=== PATIENT | female | born 1990 | race Caucasian/White ===

== ENCOUNTER 2019-10-17 05:55 | Inpatient (IN) | payer OTHER, MEDICAID, SELFPAY ==
[2019-10-17] VITALS (65 sets, daily range): BP systolic 0–169; BP diastolic 0–88; PULSE 52–92; RESP 16–18; TEMP 36.6–37.2; O2SAT 90–99; BMI 34.2
[2019-10-17 06:57] LABS: Basophils % 0.4 %; Eosinophils # 0.1 10^3/uL (0.0-0.8); Eosinophils % 2.1 %; Hematocrit 32.2 % (37.0-47.0); Hemoglobin 10.4 g/dL (11.5-15.3); Lymphocytes # 1.7 10^3/uL (0.8-4.8); Lymphocytes % 35.4 %; Mean Corpuscular HGB Conc 32.3 g/dL (30.0-36.0); Mean Corpuscular Hemoglobin 26.9 pg (28.0-34.0); Mean Corpuscular Volume 83.2 fL (81-99); Mean Platelet Volume 11.7 fL (7.4-10.4); Monocytes # 0.4 10^3/uL (0.2-0.9); Monocytes % 9.3 %; Neutrophils # 2.5 10^3/uL (1.8-7.7); Neutrophils % 52.6 %; Nucleated Red Blood Cells % 0 %; Platelet Count 191 10^3/cmm (130-400); Red Blood Count 3.87 10^6/uL (4.1-5.3); Red Cell Distribution Width 14.3 % (12.1-15.1); White Blood Count 4.8 10^3/uL (4.0-10.0)
[2019-10-17] MEDS: miSOPROStol 100 mcg tablet 25 MCG VAGINAL (07:06)
[2019-10-17] MEDS: lactated ringers 1,000 ML 999 ML IV ×2 (10:53→12:00)
--- NOTE | 2019-10-17 10:55 | PC.NURSE ---
LR BOLUS FOR EPIDURAL STARTED
[2019-10-17] MEDS: ondansetron 2 mg/ML SDV 2 mL 4 MG IVP (11:23)
--- NOTE | 2019-10-17 11:37 | ANES.PREANE2 ---
Pre-Anesthetic Assessment Pre-Anesthetic Assessment: Height/Weight: Height 1.75 m Weight 105.011 kg Temp Pulse Resp BP 97.9 F 81 17 151/79 10/17/19 07:00 10/17/19 11:26 10/17/19 07:00 10/17/19 11:26 Preop Diagnosis: labor Proposed Procedure: epi Was Beta Michael taken within 24 hours: N/A Last Intake: 09:00 Social: Social History: No alcohol and No tobacco Exam: Pre-Anes Outpt Exam: alert, oriented x 3, clear to auscultation bilaterally and regular rate & rhythm Airway: Submandibular: WNL Cervical ROM: WNL MP: 2 Pulmonary: Pulmonary: None reported CV/HEM: CV/HEM: None reported : : None reported Hepatic: Hepatic: None reported GI: GI: GERD Comments: with Metabolic: Metabolic: None reported Musc/skel: Musc/skel: None reported Neuropsych: Neuropsych: Anxiety and Depression Anesthetic Plan: ASA status: 2 Anesthesia: Anesthesia Evaluation and Regional (specify below) (epi) Risk of > 500 ml blood loss (7ml/kg in children): No Meds/Allergies Current Medications: Current Medications Generic Name Dose Route Start Last Admin Trade Name Freq PRN Reason Stop Dose Admin Ondansetron HCl 4 mg 10/17/19 06:31 10/17/19 11:23 Zofran IVP 4 mg Q4H PRN Administration NAUSEA AND VOMITI NG PFSH Anesthesia Female Reproductive History: : 4 Data Anesthesia CBC & Chem 7: 10/17/19 06:26 Other Labs: Laboratory Results - last 48 hr 10/17/19 06:26 WBC 4.8 RBC 3.87 L Hgb 10.4 L Hct 32.2 L MCV 83.2 MCH 26.9 L MCHC 32.3 RDW 14.3 Plt Count 191 MPV 11.7 H Neut % (Auto) 52.6 Lymph % (Auto) 35.4 [place] % (Auto) 9.3 Eos % (Auto) 2.1 Baso % (Auto) 0.4 Neut # (Auto) 2.5 Lymph # (Auto) 1.7 [place] # (Auto) 0.4 Eos # (Auto) 0.1 Baso # (Auto) 0.0 Nucleated RBC % (auto) 0 Nucleated RBCs # 0.0 Cardiac Studies: No Data to Display
--- NOTE | 2019-10-17 12:07 | P.ANES_ITS ---
Anesthesia Procedures Procedure/Date: 10/17/19 Epidural: Time Out Performed: Yes Consents Signed: Procedure Consent Consent: requested by attending/covering physician and from patient Lumbar Level: L3-L4 Epidural position: sitting Epidural procedure: sterile prep of area (betadine), 1% lidocaine to numb the area (3ml), 18 g needle, neg for pa resthesia, test dose given, 1.5% xylocaine 1:200k epi (5ml), 0.2% Ropivacaine bolus ml (5ml), placed PCEA, no systemic response, sterile dressing applied, L.U.D. no apparent complications and 0.2% Ropiavacaine @ mls/hr (13ml/hr)
[2019-10-17] MEDS: oxytocin 30 UNIT/500 ML BAG 600 UNIT IV (13:34)
--- NOTE | 2019-10-17 13:43 | PM.DELIVERY ---
 Delivery Note: Date of delivery: October 17, 2019 this 28-year-old 4 now para 4 female was admitted for term induction at 39 weeks gestation for increasing discomfort and need to be off for school. After explanation of benefits and risks was discussed in the office the day prior to admission she was admitted the morning of delivery for misoprostol cervical ripening. She received 1 dose of misoprostol 25 mcg and began tay some. She did receive a second dose of misoprostol and contractions became stronger. She received epidural anesthesia and shortly after she was comfortable she was found to be 8 to 9 cm dilated with a bulging bag of water. This physician arrived approximately 20 to 30 minutes later and performed artificial rupture membranes with clear fluid. At that time she was completely dilated. She pushed for just a few contractions and was able to deliver by spontaneous vaginal delivery a healthy, viable male weighing 8 pounds 14 ounces at approximately 1326. There was no episiotomy and no laceration. There was no nuchal cord and the cord did have 3 blood vessels. Upon delivery of the right shoulder anteriorly in the left shoulder posteriorly the was delivered completely and suctioned immediately after . The infant was then laid on mother's abdomen and after approximately 1 minute the cord was clamped and cut by the infant's father. The placenta delivered spontaneously at 1330. There were no complications, presently mother and infant are doing well. EBL approximately 131 mL. Pre-Delivery Course: This patient was followed through her course by this physician without significant problems or concerns. Maternal blood type was A+ with antibody screen negative. Hepatitis B, hepatitis C, RPR and HIV were negative. Group B strep was negative. She did discuss with this physician and Dr. Merino her desire for tubal ligation and that will be accomplished. The day prior to admission the patient was seen in the office and due to problems with scheduling at school and influenza going around and the fact that she was 39 weeks gestation and uncomfortable decision was made to proceed with misoprostol cervical ripening. Delivery: Spontaneous vaginal delivery. Post-Delivery Status: Patient is doing well and will be seen for tubal ligation by Dr. Merino. Otherwise routine orders. A&P Assessment and plan (1) Spontaneous vaginal delivery: Patient appears to be doing well postdelivery. Routine care with tubal ligation per Dr. Merino. Status: Acute Code(s): O80 - Encounter for full-term uncomplicated delivery Coding Level of Care Code Acute Vice President Investor Relations for Chg Fwd Diagnoses Spontaneous vaginal delivery O80
--- NOTE | 2019-10-17 16:26 | PC.NURSE ---
pt up to bathroom without difficulty. void 800ml. anne care performed. pad and underwear changed, gown changed.
--- NOTE | 2019-10-17 16:27 | PC.NURSE ---
pt ambulated to room 206. oriented to room/call light. proud parent pack discussed. instructed to call nurse for one more trip to bathroom then she may be up ad katina. plan of care discussed. pt denies needs or questions
[2019-10-17] MEDS: docusate sodium 100 mg Capsule PO (18:33)
[2019-10-18] VITALS (11 sets, daily range): BP systolic 97–152; BP diastolic 61–88; PULSE 60–114; RESP 16–18; TEMP 36.5–37.4; O2SAT 94–99
[2019-10-18 01:47] LABS: Hematocrit 30.6 % (37.0-47.0); Hemoglobin 9.8 g/dL (11.5-15.3); Mean Corpuscular Hemoglobin 27.1 pg (28.0-34.0); Mean Corpuscular Volume 84.8 fL (81-99); Mean Platelet Volume 11.5 fL (7.4-10.4); Platelet Count 168 10^3/cmm (130-400); Red Blood Count 3.61 10^6/uL (4.1-5.3); White Blood Count 7.5 10^3/uL (4.0-10.0)
--- NOTE | 2019-10-18 08:34 | PM.PN ---
Subjective Subjective: Interval history: Patient is doing well with no problems or concerns. She has mild lochia with no significant clots or cramping. She is ambulating well and tolerating a regular diet. Vitals/I&O/Wt Last Vital Signs Temp 97.7 F 10/18/19 03:30 Pulse 75 10/18/19 03:30 Resp 16 10/18/19 03:30 BP 123/86 10/18/19 03:30 Pulse Ox 92 10/17/19 12:27 10/17/19 10/18/19 10/18/19 21:59 06:59 14:59 Intake Total Output Total Balance Weight last 48 hrs Weight 105.011 kg Physical Exam Const: COMMON NORMALS: no apparent distress and oriented x3 GENERAL APPEARANCE: cooperative and comfortable ORIENTATION/CONSCIOUSNESS: Yes awake Neck/C-Spine: COMMON NORMALS: no JVD Resp: COMMON NORMALS: normal respiratory effort, no retractions, no use of accessory muscles and clear to auscultation bilaterally AUSCULTATION: clear to auscultation bilaterally Cardio: COMMON NORMALS: no JVD, regular rate, regular rhythm and no murmurs RATE: regular rate RHYTHM: regular rhythm GI: COMMON NORMALS: normal to inspection, nondistended, normoactive bowel sounds and soft to palpation (Fundus is firm.) PALPATION: Yes soft (Fundus is firm.) : UTERUS PALPATION: No uterus tender Extremity: GENERAL: Yes normal exam except as noted Neuro: COMMON NORMALS: oriented x3 Psych: COMMON NORMALS: mental status grossly normal, thought process normal, cooperative and affect normal THOUGHT PROCESS: normal thought process Urinary Catheter Management^: Fletcher: Cath Placed During This Visit: yes, but has since been removed by the nurse Reason for Continuing Indwelling Catheter: Decision to DC Catheter Urinary Catheter Date of Insertion: 10/17/19 Urinary Catheter Time of Insertion: 13:00 Date Urinary Catheter Removed: 10/17/19 Time Urinary Catheter Discontinued: 13:20 Data : 10/18/19 01:44 A&P Assessment and plan (1) Spontaneous vaginal delivery: Status: Acute Code(s): O80 - Encounter for full-term uncomplicated delivery (2) tubal ligation planned: tubal ligation planned this afternoon. Probable discharge this evening after that is accomplished. Status: Acute Attestations Medical Necessity Statement*: Patient delivered by vaginal delivery yesterday. She has tubal ligation scheduled this afternoon and will quite possibly be able to be discharged home this evening after that is accomplished. Coding Level of Care Code Acute Cancer Genetics Assistant for Moses Fwsergey Diagnoses Spontaneous vaginal delivery O80 tubal ligation planned
[2019-10-18] MEDS: sodium chloride 0.9% 1,000 ML 30 ML IV (15:22)
--- NOTE | 2019-10-18 15:49 | ANES.PREANE2 ---
Pre-Anesthetic Assessment Pre-Anesthetic Assessment: Height/Weight: Height 1.75 m Weight 105.011 kg Temp Pulse Resp BP Pulse Ox 98 F 70 16 126/76 96 10/18/19 15:16 10/18/19 15:16 10/18/19 15:16 10/18/19 15:16 10/18/19 15:16 Preop Diagnosis: undesired fertility Proposed Procedure: Operation Date: 10/18/19 16:20 Proposed Procedures p Bilateral Tubal Ligation(Not Applicable) - Naga Merino MD Familial anesthetic complications: No trouble Was Beta Michael taken within 24 hours: N/A Last intake: Breakfast at 0745 AM Social: Social History: No alcohol and No tobacco Exam: Pre-Anes Outpt Exam: alert, oriented x 3, clear to auscultation bilaterally and regular rate & rhythm Airway: Cervical ROM: WNL Dentition: Full Pulmonary: Pulmonary: None reported CV/HEM: CV/HEM: None reported : : None reported Hepatic: Hepatic: None reported GI: GI: GERD Comments: during Metabolic: Metabolic: None reported Musc/skel: Musc/skel: None reported Neuropsych: Neuropsych: None reported Anesthetic Plan: ASA status: 2 Anesthesia: General Risk of > 500 ml blood loss (7ml/kg in children): No Meds/Allergies Current Medications: Current Medications Generic Name Dose Route Start Last Admin Trade Name Freq PRN Reason Stop Dose Admin Docusate Sodium 100 mg 10/17/19 18:00 10/18/19 13:45 Colace PO Not Given BID MUSTAPHA Sodium Chloride 1,000 mls @ 30 ml s/hr 10/18/19 15:45 10/18/19 15:22 Sodium Chloride 0.9% IV 10/19/19 15:44 30 mls/hr .Q24H MUSTAPHA Administration Ibuprofen 800 mg 10/17/19 15:00 10/18/19 13:46 Motrin PO Not Given TID MUSTAPHA PFSH Anesthesia Female Reproductive History: : 4 Data Anesthesia CBC & Chem 7: 10/18/19 01:44 Other Labs: Laboratory Results - last 48 hr 10/17/19 10/18/19 06:26 01:44 WBC 4.8 7.5 RBC 3.87 L 3.61 L Hgb 10.4 L 9.8 L Hct 32.2 L 30.6 L MCV 83.2 84.8 MCH 26.9 L 27.1 L MCHC 32.3 32.0 RDW 14.3 14.0 Plt Count 191 168 MPV 11.7 H 11.5 H Neut % (Auto) 52.6 Lymph % (Auto) 35.4 [place] % (Auto) 9.3 Eos % (Auto) 2.1 Baso % (Auto) 0.4 Neut # (Auto) 2.5 Lymph # (Auto) 1.7 [place] # (Auto) 0.4 Eos # (Auto) 0.1 Baso # (Auto) 0.0 Nucleated RBC % (auto) 0 Nucleated RBCs # 0.0 Cardiac Studies: No Data to Display
--- NOTE | 2019-10-18 15:55 | ANE.PACU2 ---
 Inpatient post-anesthesia follow up: Airway intact: Yes Vital signs: Temperature 98 F Pulse Rate 70 Respiratory Rate 16 Blood Pressure 126/76 Pulse Oximetry 96 Oxygen Delivery Me thod Room Air Oxygen Flow Rate Fraction of Inspir ed Oxygen Hydration adequate: Yes Nausea and vomiting: No Mental status: Baseline Additional Comments: No signs of infection at epidural site, no tenderness to palpation, mild soreness at area. Up and walking since epidural removed, urinating since shah removed, and no complaints of headache
--- NOTE | 2019-10-18 15:55 | PM.HP ---
Providers/Chief Complaint Admitting Physician: Abdon Acosta MD Chief Complaint: IUP History of Present Illness Alexa Prieto is a 29 year old 4 para 3-0-0-3 39-week female who presented to the hospital in active labor. Her labor was augmented, she progressed to complete and had an unremarkable delivery. Earlier in her I consulted with her regarding a tubal ligation. At that time we discussed the risks of bleeding, infection, and damage to intra-abdominal organs. We also discussed a 1 and 200 chance of becoming despite a successful tubal ligation. We also discussed other alternatives including IUD and Nexplanon. She made it clear that she would like to have a tubal ligation performed. Review of Systems General: Reports: 10 or more systems reviewed and unremarkable except in HPI and below Const: Denies: fever Card: Denies: chest pain or irregular heart rhythm Resp: Denies: shortness of breath Alejandro/Lymph: Reports: other (Typical bleeding) Medications/Allergies Home Medications Medication Instructions Recorded Confirmed Last Taken Type PNV,calcium 81-mdyl-sbvtn acid tab 10/17/19 10/16/19 20:30 History [ Vitamin Plus Low Iron] ranitidine HCl 10/17/19 10/16/19 20:30 History sertraline mg 10/17/19 10/16/19 20:30 History Allergies Allergy/AdvReac Type Severity Reaction Status Date / Time No Known Allergies Allergy Verified 10/17/19 07:10 PFS Acute Female Reproductive History: : 4 Vitals/I&O/Wt Last Vital Signs Temp 98 F 10/18/19 15:16 Pulse 70 10/18/19 15:16 Resp 16 10/18/19 15:16 BP 126/76 10/18/19 15:16 Pulse Ox 96 10/18/19 15:16 Weight last 48 hrs Weight 231 lb 8.154 oz Physical Exam Const: COMMON NORMALS: no apparent distress and oriented x3 GENERAL APPEARANCE: cooperative, comfortable and well developed HENMT: COMMON NORMALS: normocephalic and moist oral mucous membranes HEAD & SCALP: normocephalic Chest: COMMONS NORMALS: inspection of chest normal Resp: COMMON NORMALS: normal respiratory effort and clear to auscultation bilaterally AUSCULTATION: clear to auscultation bilaterally Cardio: COMMON NORMALS: regular rate, regular rhythm, no gallops, no murmurs and no rub RATE: regular rate RHYTHM: regular rhythm : BLADDER/KIDNEY EXAM: Yes other (The fundus is below the umbilicus.) Extremity: COMMON NORMALS: normal to inspection Neuro: COMMON NORMALS: oriented x3 and no focal motor deficits Skin: COMMON NORMALS: no rashes or lesions noted GENERAL SKIN EXAM: no rashes or lesions noted Urinary Catheter Management^: Fletcher: Cath Placed During This Visit: yes, but has since been removed by the nurse Reason for Continuing Indwelling Catheter: Decision to DC Catheter Urinary Catheter Date of Insertion: 10/17/19 Urinary Catheter Time of Insertion: 13:00 Date Urinary Catheter Removed: 10/17/19 Time Urinary Catheter Discontinued: :20 Data : 10/18/19 01:44 A&P Assessment and plan (1) tubal ligation planned: We will proceed with a bilateral tubal ligation. We once again discussed the risks with the patient. She has no further concerns. Status: Acute (2) Spontaneous vaginal delivery: Status: Acute Code(s): O80 - Encounter for full-term uncomplicated delivery Attestations Medical Necessity Statement*: Routine post tubal ligation care. She will likely be discharged later today or tomorrow morning. Coding Level of Care Code Acute Corporate Associate Attorney for Chg Fwd Diagnoses tubal ligation planned Spontaneous vaginal delivery O80
--- NOTE | 2019-10-18 16:46 | P.OP_ITS ---
Operative Report Date of procedure: October 18, 2019 Pre-op Diagnosis: undesired fertility Post-op diagnosis: same Procedure Done: minilaparotomy bilateral tubal ligation using a modified Beronica technique Specimens removed/disposition: Bilateral fallopian tube segments with the right segment being tagged Surgeon: Naga Merino Estimated blood loss (mL): 5 Complications: None Condition: stable Procedure: The patient was brought back to the operating room where anesthesia was found to be adequate. 10 mL of 0.5% bupivacaine was then used to pre- anesthetize the area just inferior to the umbilicus. A #15 blade was then used to make a 3 cm transverse incision just inferior to the umbilicus. I then dissected down to the underlying subcutaneous tissue until arriving at the fascia. The fascia was then nicked with the scalpel. The fascial incision was extended manually. I identified the fundus of the uterus and followed it to the left fallopian tube. The fallopian tube was then followed to the fimbria. The tube was then ligated, cut, and cauterized in a modified Beronica fashion using 0 chromic. The right fallopian tube was then identified and followed through to the fimbria. It was ligated, cut, and cauterized in similar fashion. The right fallopian tube was tagged. Both fallopian tubes had excellent hemostasis. The fascia was reapproximated using 0 Vicryl in running stitch. The subcut aneous tissue was carefully examined and no further bleeding was noted. The skin was then reapproximated using 4-0 Vicryl in a running subcuticular stitch. A sterile dressing was placed. All counts were correct x2. The patient was moved to the recovery room in stable condition.
--- NOTE | 2019-10-18 17:22 | P.DS_ITS ---
Discharge Providers RURAL ELECTRIFICATION ENGINEER Date of Admission: 10/17/19 05:55 Date of Discharge: 10/18/19 Attending Provider at Admission: Abdon Acosta MD Attending Provider at Discharge: Abdon Acosta MD Consults: Naga Merino Diagnoses at Discharge Discharge Diagnosis (1) tubal ligation planned: Status: Acute (2) Spontaneous vaginal delivery: Status: Acute Reason for Visit Reason for Visit: Reason For Visit: IUP Hospital Course Hospital Course: The patient presented to the hospital due to having contractions that are painful. Her labor was augmented. She had an unremarkable vaginal delivery. Her course was also unremarkable. She had routine bleeding. She was pumping breastmilk. A tubal ligation was performed on the subsequent day. It was also unremarkable. She was discharged several hours after her tubal ligation. Information Peripartum Data: Infant Delivery Method: Vaginal Physical Exam Narrative: EXAM NARRATIVE: The patient is alert. She appears comfortable. Her heart has a regular rate and rhythm with no murmurs appreciated. Lungs are clear to auscultation bilaterally. Her fundus is firm and below the umbilicus prior to the tubal ligation. Urinary Catheter Management^: Fletcher: Cath Placed During This Visit: yes, but has since been removed by the nurse Reason for Continuing Indwelling Catheter: Decision to DC Catheter Urinary Catheter Date of Insertion: 10/17/19 Urinary Catheter Time of Insertion: 13:00 Date Urinary Catheter Removed: 10/17/19 Time Urinary Catheter Discontinued: 13:20 Discharge Data Data Completed and Pending: Pending at discharge Category Date Time Status Pathology: Surgic al [PTH] Routine Pth 10/18/19 16:42 Ordered Labs from last 24 hours 10/18/19 01:44 WBC 7.5 RBC 3.61 L Hgb 9.8 L Hct 30.6 L MCV 84.8 MCH 27.1 L MCHC 32.0 RDW 14.0 Plt Count 168 MPV 11.5 H Vitals: Last Vital Signs Temp 98.8 F 10/18/19 17:10 Pulse 74 10/18/19 17:10 Resp 18 10/18/19 17:10 BP 143/83 10/18/19 17:10 Pulse Ox 95 10/18/19 17:10 Discharge Plan Discharge Patient Disposition: Home, Self-Care Condition: Stable Prescriptions: New ibuprofen 800 mg Tablet 800 mg PO TID Qty: 45 RF: 0 hydrocodone-acetaminophen 5-325 mg Tablet 1 tab PO Q6H PRN (Reason: Moderate To Severe Pain) Qty: 20 RF: 0 Continued sertraline 50 mg tablet RF: 0 ranitidine HCl 150 mg tablet RF: 0 Vitamin Plus Low Iron 27 mg iron- 1 mg tablet RF: 0 Discharge Orders: Discharge Order (Routine); Ordered 10/18/19 Ordered By: Naga Merino Referrals: Abdon Acosta MD [Family Provider] - 6 Weeks Naga Merino MD [Physician] - 7-10 days Discharge Diet: Usual diet Discharge Activity: Limit activity as instructed Discharge Attestations RURAL ELECTRIFICATION ENGINEER Time Spent in Discharge Care*: less than 30 min Coding Level of Care Code Acute Rural Electrification Engineer for Chg Fwd Diagnoses tubal ligation planned Spontaneous vaginal delivery O80
[2019-10-18] MEDS: HYDROcodone-acetaminophen 5-325 mg Tablet PO (17:37)
[2019-10-18] MEDS: measles,mumps,rubella pf Vial (w/diluent) 0.5 ML SUBCUT (20:26)
== END 2019-10-18 20:50 | disposition home or self-care (01) | DRG 798 ==
PROVIDERS: Family Medicine; Admitting Provider Family Medicine; Family Provider Family Medicine; Visit Provider Family Medicine
PROC: 0UL74ZZ Occlusion of Bilateral Fallopian Tubes, Percutaneous Endoscopic Approach (ICD-10-PCS; CPT 58605; principal; 2019-10-18 16:00)
DX: O80 Encounter for full-term uncomplicated delivery (principal); Z37.0 Single live birth; Z3A.39 39 weeks gestation of pregnancy; Z30.2 Encounter for sterilization
CPT/HCPCS: 12345; 36415; 51702; 59025; 59409; 85025; 85027; 88302; 90707; 96372; 96375; J0330; J1885; J2001; J2405; J2704; J2795; J3010; J3490; J7030

== ENCOUNTER → 2023-04-30 15:54 | Outpatient (BNVA) | payer OTHER, SELFPAY | PROVIDERS: Family Provider Family Medicine; PCP Family Medicine; Visit Provider Family Medicine | DX: N92.1 Excessive and frequent menstruation with irregular cycle (principal); D64.9 Anemia, unspecified | CPT/HCPCS: 82670; 82728; 83001; 83002; 84439; 84443; 84481; 85025 ==

== ENCOUNTER 2023-05-08 06:44 | Outpatient (CLI) | payer OTHER, SELFPAY ==
--- NOTE | 2023-05-08 07:15 | US_ITS ---
WS: [id number] US pelv w/transvag [id number] HISTORY: menometrorrhagia COMPARISON: 11/19/2012 Uterus: 9.3 cm x 6.7 cm x 6.0 cm. Mildly enlarged retroverted uterus. At least one fibroid is identified along the anterior lower endoc ervical segment measuring 1.0 x 0.8 x 1.2 cm. Endometrium: 1.0 cm. Normal. There is a tiny amount of fluid along the endometrial canal. Right ovary: 5.0 cm x 2.4 cm x 3.6 cm. Mildly enlarged ovary. There are numerous follicles of similar size throughout the ovary. These are often seen in polycystic ovarian syndrome. There is a small misa unt of fluid adjacent to the ovary. There is a more focal thick-walled complex cyst within the ovary measuring 2.1 x 1.7 x 2.0 cm. This is probably a collapsing corpus luteum. Left ovary: 3.9 cm x 2.3 cm x 2.2 cm. Normal size ovary. This ovary is not as well visualized due to its deep position. No mass identified. No free fluid in the cul-de-sac. IMPRESSION: 1. Retroverted uterus containing a single fibroid with a maximum diameter of 1.2 cm. 2. Multiple small follicles throughout the RIGHT ovary. This is often seen with polycystic ovarian sy ndrome. 3. no ovarian mass.
== END 2023-05-08 06:45 | disposition home or self-care (01) ==
PROVIDERS: PCP Family Medicine; Visit Provider Family Medicine
DX: N92.1 Excessive and frequent menstruation with irregular cycle (principal); N85.4 Malposition of uterus; D25.9 Leiomyoma of uterus, unspecified
CPT/HCPCS: 76830; 76856

== ENCOUNTER → 2023-09-10 16:03 | Outpatient (BNVA) | payer OTHER, SELFPAY | PROVIDERS: PCP Family Medicine; Visit Provider Obstetrics & Gynecology | DX: Z01.419 Encounter for gynecological examination (general) (routine) without abnormal findings (principal) | CPT/HCPCS: 87624 ==

== ENCOUNTER 2023-10-03 08:28 | Day surgery (SDC) | payer OTHER, SELFPAY ==
[2023-10-03] VITALS (9 sets, daily range): BP systolic 127–139; BP diastolic 77–100; PULSE 66–100; RESP 12–18; TEMP 36.5–36.9; O2SAT 96–100; BMI 35.4
--- NOTE | 2023-10-03 01:29 | W.PM.OPSFHP ---
Same Day Surgery H&P Indication for Procedure/HPI DATE OF PROCEDURE: October 03, 2023 CHIEF COMPLAINT/INDICATIONFOR SURGICAL PROCEDURE: abnormal uterine bleeding, heavy menstrual bleeding PREOP DIAGNOSIS: abnormal uterine bleeding PLANNED PROCEDURE: Operation Date: 10/03/23 10:05 Proposed Procedures p Hysteroscopy, endometrial sampling, possible endometrial polypectomy 40082, Endometrial ablatitiom 88594 with Novasure 07946,N92.1(Not Applicable) - Damon Ahn MD s possible endometrial polypectomy(Not Applicable) - Damon Ahn MD s Endometrial ablation with Novasure(Not Applicable) - Damon Ahn MD 32 y.o. h/o BTL 3 years ago following BTL, periods have been very heavy and painful, lasting 5-7 days, with large clots now with spotting between periods and 2 periods / month now scheduled for hysteroscopy; endometrial sampling; possible endometrial polypectomy; endometrial ablation Medications/Allergies* Home Medications Medication Instructions Recorded Confirmed Type metformin 500 mg tablet 500 mg PO BID 10/02/23 10/02/23 History sertraline 25 mg tablet 25 mg PO DAILY 10/02/23 10/02/23 History Allergies/Adverse Reactions Allergy/AdvReac Type Severity Reaction Status Date / Time No Known Allergies Allergy Verified 10/02/23 14:27 Pertinent History/Comorbid Conditions* Medical History (Updated 09/11/23 @ 07:37 by Jannet Tsai MD) Obesity Anxiety Depression Surgical History (Updated 04/30/23 @ 15:10 by Jannet Tsai MD) History of bilateral tubal ligation Family History (Updated 05/28/23 @ 13:14 by Colleen Aguila RN) Colon cancer Grandfather Diabetes Grandmother Grandfather Psychiatric illness Father Denies family history of Ovarian cancer Heart disease Hyperlipidemia Breast cancer Hypertension Uterine cancer Thyroid disease Social History Smoking and tobacco/nicotine status: never used tobacco/nicotine Alcohol intake: never Substance/Drug Use: never Household members: spouse and children Marital status: Number of children: 4 Current occupational status: employed 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
[2023-10-03 08:51] LABS: OR HCG Qualitative Urine Negative (Negative)
[2023-10-03] MEDS: scopolamine 1.5 Patch 1 PATCH TRANSDERMA (09:05)
[2023-10-03] MEDS: sodium chloride 0.9% 1,000 ML 30 ML IV (09:15)
--- NOTE | 2023-10-03 09:33 | W.PM.OPSUD ---
Surgery/Procedure H&P Update DATE OF PROCEDURE: October 03, 2023 DATE H&P PERFORMED: 10/03/23 H&P UPDATE INFORMATION: I have reviewed H&P completed within last 30 days, I have examined patient prior to procedure and No changes to prior documentation PREOP DIAGNOSIS: abnormal uterine bleeding PLANNED PROCEDURE: Operation Date: 10/03/23 10:05 Proposed Procedures p Hysteroscopy, endometrial sampling, possible endometrial polypectomy 02353, Endometrial ablatitiom 13195 with Novasure 14343,N92.1(Not Applicable) - Damon Ahn MD s possible endometrial polypectomy(Not Applicable) - Damon Ahn MD s Endometrial ablation with Novasure(Not Applicable) - Damon Ahn MD
--- NOTE | 2023-10-03 09:57 | P.ANESASSM_ITS ---
Pre-Anesthetic Assessment Height/Weight: Height 1.75 m Weight 108.862 kg Temp Pulse Resp BP Pulse Ox O2 Del Method 98.1 F 80 18 134/100 97 Room Air 10/03/23 08:55 10/03/23 08:55 10/03/23 08:55 10/03/23 08:55 10/03/23 08:55 10/03/23 08:55 Preop Diagnosis: abnormal uterine bleeding Operation Date: 10/03/23 10:05 Proposed Procedures p Hysteroscopy, endometrial sampling, possible endometrial polypectomy 71533, Endometrial ablatitiom 21829 with Novasure 94879,N92.1(Not Applicable) - Damon Ahn MD s possible endometrial polypectomy(Not Applicable) - Damon Ahn MD s Endometrial ablation with Novasure(Not Applicable) - Damon Ahn MD Familial anesthetic complications: None Was Beta Michael taken within 24 hours: N/A Was Clonidine taken within 24 hours: N/A Last intake: Intake Last Liquid Date 10/02/23 Last Liquid Time 21:00 Last Solid Date 10/02/23 Last Solid Time 19:00 Social No alcohol and No tobacco Exam alert, oriented x 3 and regular rate & rhythm Airway Submandibular: within normal limits Mallampati: Class III Dentition: full History/ROS No significant history except as noted Pulmonary None reported CV/HEM None reported None reported Hepatic None reported GI None reported Metabolic None reported Musc/skel None reported Neuropsych Anxiety and Depression Anesthetic Plan ASA status: 2 Anesthesia: Anesthesia Evaluation and General Risk of > 500 ml blood loss (7ml/kg in children): No Medications/Allergies Home Medications Medication Instructions Recorded Confirmed Last Taken Type metformin 500 mg tablet 500 mg PO BID 10/02/23 10/02/23 10/01/23 History sertraline 25 mg tablet 25 mg PO DAILY 10/02/23 10/02/23 10/01/23 History Allergies Allergy/AdvReac Type Severity Reaction Status Date / Time No Known Allergies Allergy Verified 10/02/23 14:27 Current Medications Generic Name Dose Route Start Last Admin Trade Name Freq PRN Reason Stop Dose Admin Sodium Chloride 1,000 mls @ 30 mls/hr 10/03/23 08:45 10/03/23 09:15 Sodium Chloride 0.9% IV 10/04/23 08:44 30 mls/hr .Q24H MUSTAPHA Administration PFSH Anesthesia Medical History (Updated 09/11/23 @ 07:37 by Jannet Tsai MD) Obesity Anxiety Depression Surgical History History of bilateral tubal ligation Family History (Updated 05/28/23 @ 13:16 by Colleen Aguila, RN) Father Psychiatric illness Grandmother Diabetes Grandfather Diabetes Colon cancer Denies family history of Ovarian cancer Heart disease Hyperlipidemia Breast cancer Hypertension Uterine cancer Thyroid disease Social History Smoking and tobacco/nicotine status: never used tobacco/nicotine Alcohol intake: never Substance/Drug Use: never Household members: spouse and children Marital status: Number of children: 4 Current occupational status: employed 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
--- NOTE | 2023-10-03 12:05 | PM.OP ---
Operative Report Date of procedure: October 03, 2023 Pre-op diagnosis: abnormal uterine bleeding, heavy menstrual bleeding Post-op diagnosis: same Procedure done: hysteroscopy curettage of uterus endometrial ablation with Novasure device Implants: none Specimens removed/disposition: endometrial curettings Pap smear Surgeon: Damon Ahn MD Anesthesia: MAC Estimated blood loss (mL): 10 Complications: none Condition: stable Disposition: PACU Brief History: 32 y.o. with h/o heavy menstrual bleeding Procedure: Informed consent was obtained. The patient was taken to the OR and placed on the table. General endotracheal anesthesia was induced. The patient was then placed in dorsolithotomy position. Pap smear was done. The perineum were then prepped and draped in the usual fashion. A speculum was placed in the vagina. The anterior lip of the cervix was grasped with a sharp-toothed tenaculum. The uterus was sounded to 9 cm. The cervix was serially dilated with Hegar dilators. . A hysteroscope was placed into the endometrial cavity. The endometrial cavity was seen to be normal. There were no polyps or fibroids. There was minimal endometrial tissue. The hysteroscope was then removed. Endometrial curettage was done with a sharp curette. Endometrial tissue was sent to pathology. The Novasure device was then primed and inserted into the endometrial cavity. The cervical occlusion sleeve was advanced. Cavity integrity test was done. The device was activated for 110 seconds. The Novasure device was then removed. Repeat hysteroscopy showed an intact endometrial cavity with adequate global endometrial ablation. All instruments were then removed. The sharp-toothed tenaculum was removed. There was a 2 cm laceration of the cervix at 10 o?oclock from the sharp-toothed tenaculum. A stitch of 2-O chromic was placed. No further bleeding was seen. The patient was then placed supine and awakened and taken to the PACU. Postop condition: stable EBL: 10 cc Sponge, needle and instruments counts were normal x 2 Complications: none
--- NOTE | 2023-10-03 12:15 | ANE.PACU2 ---
Inpatient post-anesthesia follow up: Airway intact: Yes Vital signs: Temperature 98 F Pulse Rate 68 Respiratory Rate 17 Blood Pressure 132/80 Pulse Oximetry 97 Oxygen Delivery Me thod Room Air Oxygen Flow Rate 4 Fraction of Inspir ed Oxygen Hydration adequate: Yes Nausea and vomiting: No Pain level: 1 Mental status: Baseline
[2023-10-08 14:04] LABS: Prev. BX: NONE GIVEN; Previous Pap NONE GIVEN
== END 2023-10-03 12:17 | disposition home or self-care (01) ==
PROVIDERS: Anesthesiology; PCP Family Medicine; Visit Provider Obstetrics & Gynecology
PROC: 0UJD8ZZ Inspection of Uterus and Cervix, Via Natural or Artificial Opening Endoscopic (ICD-10-PCS; CPT 58555; principal; 2023-10-03 09:55)
PROC: (CPT 58999; 2023-10-03 09:55)
DX: N93.9 Abnormal uterine and vaginal bleeding, unspecified (principal); Z90.79 Acquired absence of other genital organ(s); E66.9 Obesity, unspecified; Z68.35 Body mass index [BMI] 35.0-35.9, adult
CPT/HCPCS: 58563; 81025; 84703; 88175; 88305; J1100; J1200; J1885; J2250; J2405; J2704; J3010; J7030

== ENCOUNTER → 2024-01-28 13:23 | Outpatient (BNVA) | payer OTHER, SELFPAY | PROVIDERS: PCP Family Medicine; Visit Provider Family Medicine | DX: F41.9 Anxiety disorder, unspecified (principal) | CPT/HCPCS: 80053; 84443; 85025 ==

== ENCOUNTER 2024-02-20 09:33 | Observation (INO) | payer OTHER, SELFPAY ==
[2024-02-20] VITALS (18 sets, daily range): BP systolic 118–162; BP diastolic 65–89; PULSE 72–102; RESP 14–19; TEMP 36.4–37.6; O2SAT 94–99; BMI 36.9
--- NOTE | 2024-02-20 04:38 | W.PM.OPSFHP ---
Same Day Surgery H&P Indication for Procedure/HPI DATE OF PROCEDURE: February 20, 2024 CHIEF COMPLAINT/INDICATIONFOR SURGICAL PROCEDURE: menometrorrhagia PREOP DIAGNOSIS: menometrorrhagia PLANNED PROCEDURE: Operation Date: 02/20/24 07:00 Proposed Procedures p Laparoscopic Assist Vaginal Hysterectomy 64462, N93.9(Not Applicable) - Damon Ahn MD 33 y.o. h/o BTL 3 years ago h/o hysteroscopy, endometrial sampling, endometrial ablation with Novasure October 03, 2023 Findings: Normal endometrial cavity No endometrial polyps or fibroids Minimal endometrial tissue Pap NILM, negative HPV Pathology benign secretory endometrium Has continued to have bleeding, occasionally heavy and painful Patient now scheduled for hysterectomy Medications/Allergies* Allergies/Adverse Reactions Allergy/AdvReac Type Severity Reaction Status Date / Time topiramate [From Topamax] Allergy anxiety Verified 02/19/24 15:21 Pertinent History/Comorbid Conditions* Medical History (Updated 09/11/23 @ 07:37 by Jannet Tsai MD) Obesity Anxiety Depression Surgical History (Updated 04/30/23 @ 15:10 by Jannet Tsai MD) History of bilateral tubal ligation Family History (Updated 05/28/23 @ 13:14 by Colleen Aguila RN) Colon cancer Grandfather Diabetes Grandmother Grandfather Psychiatric illness Father Denies family history of Ovarian cancer Heart disease Hyperlipidemia Breast cancer Hypertension Uterine cancer Thyroid disease Social History Smoking and tobacco/nicotine status: never used tobacco/nicotine Alcohol intake: never Substance/Drug Use: never Household members: spouse and children Marital status: Number of children: 4 Current occupational status: employed 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
--- NOTE | 2024-02-20 06:37 | W.PM.OPSUD ---
Surgery/Procedure H&P Update DATE OF PROCEDURE: February 20, 2024 DATE H&P PERFORMED: 02/20/24 H&P UPDATE INFORMATION: I have reviewed H&P completed within last 30 days, I have examined patient prior to procedure and No changes to prior documentation PREOP DIAGNOSIS: menometrorrhagia PLANNED PROCEDURE: Operation Date: 02/20/24 07:00 Proposed Procedures p Laparoscopic Assist Vaginal Hysterectomy 06764, N93.9(Not Applicable) - Damon Ahn MD
--- NOTE | 2024-02-20 06:47 | P.ANESASSM_ITS ---
Pre-Anesthetic Assessment Height/Weight: Height 1.75 m Weight 113.398 kg Temp Pulse Resp BP Pulse Ox O2 Del Method 97.6 F 78 18 139/80 96 Room Air 02/20/24 06:09 02/20/24 06:09 02/20/24 06:09 02/20/24 06:09 02/20/24 06:09 02/20/24 06:09 Preop Diagnosis: menometrorrhagia Operation Date: 02/20/24 07:00 Proposed Procedures p Laparoscopic Assist Vaginal Hysterectomy 11655, N93.9(Not Applicable) - Damon Ahn MD Last intake: Intake Last Liquid Date 02/19/24 Last Liquid Time 22:00 Last Solid Date 02/19/24 Last Solid Time 20:30 Social No tobacco Exam alert, oriented x 3, clear to auscultation bilaterally and regular rate & rhythm Airway Submandibular: within normal limits Cervical ROM: within normal limits Mallampati: Class I Pulmonary None reported CV/HEM None reported None reported Hepatic None reported Metabolic None reported Anesthetic Plan ASA status: 2 Anesthesia: General Risk of > 500 ml blood loss (7ml/kg in children): Yes, adequate IV access and fluids planned Medications/Allergies Home Medications Medication Instructions Recorded Confirmed Last Taken Type amitriptyline 10 mg tablet 10 mg PO .qhs #30 tabs 01/28/24 02/19/24 Unknown Rx sertraline 50 mg tablet 50 mg PO DAILY #30 tabs 01/28/24 02/19/24 02/18/24 Rx Allergies Allergy/AdvReac Type Severity Reaction Status Date / Time topiramate [From Topamax] Allergy anxiety Verified 02/19/24 15:21 [facility] Anesthesia Medical History Obesity Anxiety Depression Surgical History History of bilateral tubal ligation Family History Father Psychiatric illness Grandmother Diabetes Grandfather Diabetes Colon cancer Denies family history of Ovarian cancer Heart disease Hyperlipidemia Breast cancer Hypertension Uterine cancer Thyroid disease Social History Smoking and tobacco/nicotine status: never used tobacco/nicotine Alcohol intake: never Substance/Drug Use: never Household members: spouse and children Marital status: Number of children: 4 Current occupational status: employed 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
[2024-02-20 07:10] LABS: OR HCG Qualitative Urine Negative (Negative)
[2024-02-20] MEDS: ceFAZolin 2,000 mg SDV 2000 MG IVP (07:10)
[2024-02-20] MEDS: sodium chloride 0.9% 1,000 ML 30 ML IV (07:15)
[2024-02-20] MEDS: lidocaine-epi 1% PF 1:200,000 30 mL SDV INJECTION (07:51)
--- NOTE | 2024-02-20 09:39 | P.OP_ITS ---
Operative Report Date of procedure: February 20, 2024 Pre-op diagnosis: menometrorrhagia Post-op diagnosis: same Post-op findings: Normal-sized uterus Normal ovaries Fallopian tubes remnants from previous bilateral salpingectomy Procedure done: Laparoscopic assisted vaginal hysterectomy Implants: none Specimens removed/disposition: uterus bilateral fallopian tube remnants Surgeon: Jose Armando Carreon MD [employer]: Damon Ahn MD Anesthesia: General Estimated blood loss (mL): 300 Complications: none Findings: Normal-sized uterus Normal ovaries Fallopian tubes remnants from previous bilateral salpingectomy Condition: stable Disposition: PACU Brief History: 33 y.o. h/o BTL h/o endometrial ablation has continued to have heavy uterine bleeding Procedure: The patient was taken to the operating room, placed supine on the table. General endotracheal anesthesia was induced. A shah catheter was placed which drained clear urine. The patient was placed in dorsolithotomy position for laparoscopic surgery. The abdomen and perineum were prepped and draped in the usual sterile fashion. A Zumi uterine elevator was placed via the cervix for manipulation of the uterus. An intra-umbilical incision was made measuring approximately 1 cm. A Veress needle was inserted. After confirming intraperitoneal entry, a pneumoperitoneum was achieved. The Veress needle was removed. A trocar with sheath was placed. A laparoscope was inserted and used to visualize the pelvic organs. Normal ovaries were seen. The uterus was normal-sized. There was evidence of previous bilateral tubal ligation. The liver edge was normal. One additional skin incision in the suprapubic region was made measuring 0.5 cm. 5 mm trocar with sheath was inserted via this incision under laparoscopic visualization. A Ligasure device and endograsper were placed. The Ligasure device was used to divide the round ligaments on both sides followed by the uteroovarian ligaments. These were successfully coagulated and divided without any bleeding. It was then decided to proceed vaginally to complete the vaginal hysterectomy portion of the procedure. The pneumoperitoneum was allowed to escape. The Zumi was removed. A vaginal Bookwalter retractor was placed. The cervicovaginal junction was incised and the anterior and posterior cul-de-sacs were entered without any injury to the underlying organs including the bowel and the bladder. The uterine vessels on both sides were then divided and coagulated without any difficulties. The uterus was removed. The fallopian tube remnants were also removed on both sides. No bleeding was seen. The vaginal cuff was then closed using a running suture of O-Vicryl. The pneumoperitoneum was re-instituted and the pelvis was examined using the laparoscope to confirm good hemostasis. Following this, all instruments were removed from the abdomen after the pneumoperitoneum was allowed to escape. The laparoscopic skin incisions were then closed using 4-O skin sutures. The patient was placed supine and taken to the recovery room. Postoperative condition stable EBL: 300 cc Complications: none To PACU in good condition
[2024-02-20] MEDS: HYDROcodone-acetaminophen 5-325 mg Tablet PO ×2 (10:18→21:27)
[2024-02-20] MEDS: morphine 4 mg/mL SDV 1 mL IVP (10:18)
[2024-02-20] MEDS: ondansetron 2 mg/ML SDV 2 mL 4 MG IVP (10:19)
[2024-02-20] MEDS: dextrose 5%-lactated ringers 1,000 ML 125 ML IV (13:26)
[2024-02-20] MEDS: ketorolac 30 mg/mL INJ IVP ×2 (15:07→20:45)
--- NOTE | 2024-02-20 15:56 | ANE.PACU2 ---
Inpatient post-anesthesia follow up: Airway intact: Yes Vital signs: Temperature 98 F Pulse Rate 74 Respiratory Rate 16 Blood Pressure 130/74 Pulse Oximetry 94 Oxygen Delivery Me thod Room Air Oxygen Flow Rate 8 Fraction of Inspir ed Oxygen Hydration adequate: Yes Nausea and vomiting: No Pain level: controlled Mental status: Baseline Additional Comments: no apparent anesthetic complications noted
[2024-02-20] MEDS: docusate sodium 100 mg Capsule PO (20:45)
[2024-02-21] MEDS: ketorolac 30 mg/mL INJ IVP (02:26)
[2024-02-21 06:12] VITALS: BP 127/75; PULSE 81; RESP 16; TEMP 36.8; O2SAT 98
[2024-02-21 06:25] LABS: Hematocrit 33.2 % (36-47); Mean Corpuscular HGB Conc 32.5 g/dL (30-55); Mean Corpuscular Hemoglobin 27.8 pg (27-33); Mean Corpuscular Volume 85.3 fl (85-98); Mean Platelet Volume 9.8 fL (7.4-10.4); Platelet Count 292 10^3/cmm (157-399); Red Blood Count 3.89 10^6/uL (3.85-5.65); Red Cell Distribution Width 12.6 % (12.1-15.1); White Blood Count 9.09 10^3/uL (3.29-11.43)
[2024-02-21] MEDS: ibuprofen 800 mg tablet PO (08:00)
[2024-02-21] MEDS: docusate sodium 100 mg Capsule PO (08:01)
[2024-02-21 10:00] VITALS: BP 122/72; PULSE 70; RESP 16; TEMP 36.8; O2SAT 98
--- NOTE | 2024-02-21 11:44 | PC.NURSE ---
Discharge instructions given at this time. All questions answered.
[2024-02-21 12:05] VITALS: BP 122/72; PULSE 70; RESP 16; TEMP 36.8; O2SAT 98
--- NOTE | 2024-02-21 12:40 | PM.OBGYPN ---
[facility] [place] Subjective Subjective: Interval history: c/o mild abdominal pain, relieved with pain medications eating, voiding, ambulating well no bleeding / discharge wants to go home Vitals/I&O/Wt Last Vital Signs Temp 98.2 F 02/21/24 12:05 Pulse 70 02/21/24 12:05 Resp 16 02/21/24 12:05 BP 122/72 02/21/24 12:05 Pulse Ox 98 02/21/24 12:05 O2 Del Method Room Air 02/21/24 06:12 O2 Flow Rate 8 02/20/24 09:20 02/20/24 02/21/24 02/21/24 22:59 06:59 14:59 Intake Total 2000 / 3600 100 / 3700 1250 / 1250 Output Total 3300 / 3900 900 / 4800 150 / 150 Balance -1300 / -300 -800 / -1100 1100 / 1100 Weight last 48 hrs Weight 250 lb Weight 250 lb Physical Exam Narrative: Comfortable, in no distress Awake, alert Afebrile, VS normal Lungs: clear Cor: RRR Abd: soft, nondistended, nontender Laparoscopic incisions clean and dry Ext: normal Urinary Catheter Management: Fletcher: Cath Placed During This Visit: yes, but has since been removed by the nurse Reason for Continuing Indwelling Catheter: Decision to DC Catheter Urinary Catheter Date of Insertion: 02/20/24 Urinary Catheter Time of Insertion: 07:34 Date Urinary Catheter Removed: 02/21/24 Time Urinary Catheter Discontinued: 06:12 Data 02/21/24 06:10 A&P Assessment and plan (1) S/P hysterectomy: s/p laparoscopic-assisted vaginal hysterectomy POD #1 Doing well Plan to discharge to home Call / return if fever, chills, abdominal pain, bleeding f/u in one week Attestations Medical Necessity Statement*: patient s/p hysterectomy, plan to discharge to home today Coding Level of Care Code Acute Code for Chg Fwd Diagnoses S/P hysterectomy Z90.710 Time Spent (min) 20
--- NOTE | 2024-02-21 12:45 | P.DS_ITS ---
Discharge Providers BELLY DANCER Date of Admission: 02/20/24 09:33 Date of Discharge: 02/21/24 Attending Provider at Admission: Damon Ahn MD Attending Provider at Discharge: Damon Ahn MD Consults: none Primary BELLY DANCER: Damon Ahn MD Primary Care Provider: Jannet Tsai MD Diagnoses at Discharge Discharge Diagnosis (1) S/P hysterectomy: Details from hospital stay: patient underwent laparoscopic-assisted vaginal hysterectomy without any complications patient did well postoperatively and was discharged to home on the first postoperative day Status: Acute Reason for Visit Reason for Visit: Z30.2 Brief History: 33 y.o. h/o BTL h/o endometrial ablation for menometrorrhagia has continued to bleed after endometrial ablation was therefore scheduled for hysterectomy for definitive treatment Hospital Course Hospital Course patient underwent laparoscopic-assisted vaginal hysterectomy without any complications patient did well postoperatively and was discharged to home on the first postoperative day Physical Exam Narrative: Comfortable, in no distress Awake, alert Afebrile, VS normal Lungs: clear Cor: RRR Abd: soft, nondistended, nontender Laparoscopic incisions clean and dry Ext: normal Urinary Catheter Management: Fletcher: Cath Placed During This Visit: yes, but has since been removed by the nurse Reason for Continuing Indwelling Catheter: Decision to DC Catheter Urinary Catheter Date of Insertion: 02/20/24 Urinary Catheter Time of Insertion: 07:34 Date Urinary Catheter Removed: 02/21/24 Time Urinary Catheter Discontinued: 06:12 History History History 4 Term 4 0 Miscarriages/Ectopic 0 Living Children 4 Discharge Data Studies Completed and Pending Pending at discharge Category Date Time Status Pathology: Surgical [PTH] Routine Pth 02/20/24 08:41 Received Laboratory Results WBC 9.09 10^3/uL (3.29-11.43) 02/21/24 06:10 RBC 3.89 10^6/uL (3.85-5.65) 02/21/24 06:10 Hgb 10.80 g/dL (11.27-16.99) L 02/21/24 06:10 Hct 33.2 % (36-47) L 02/21/24 06:10 MCV 85.3 fl (85-98) 02/21/24 06:10 MCH 27.8 pg (27-33) 02/21/24 06:10 MCHC 32.5 g/dL (30-55) 02/21/24 06:10 RDW 12.6 % (12.1-15.1) 02/21/24 06:10 Plt Count 292 10^3/cmm (157-399) 02/21/24 06:10 MPV 9.8 fL (7.4-10.4) 02/21/24 06:10 Urine HCG, Qual Negative (Negative) 02/20/24 07:00 Blood Type A Positive 02/20/24 06:55 Rho(D) Type Rh positive 02/20/24 06:55 Antibody Screen Negative 02/20/24 06:55 Procedures Performed laparoscopic-assisted vaginal hysterectomy Vitals Last Vital Signs Temp 98.2 F 02/21/24 12:05 Pulse 70 02/21/24 12:05 Resp 16 02/21/24 12:05 BP 122/72 02/21/24 12:05 Pulse Ox 98 02/21/24 12:05 O2 Del Method Room Air 02/21/24 06:12 O2 Flow Rate 8 02/20/24 09:20 Results Labs OB ([facility]): Blood Type A Positive 02/20/24 Antibody Screen Negative 02/20/24 Hct 33.2 % (36-47) L 02/21/24 Hgb 10.80 g/dL (11.27-16.99) L 02/21/24 Rho(D) Type Rh positive 02/20/24 Plt Count 292 10^3/cmm (157-399) 02/21/24 TSH 2.27 uIU/mL (0.27-4.20) 01/28/24 Free T4 1.39 ng/dL (0.82-1.77) 04/30/23 FSH 4.5 mIU/mL 04/30/23 Total Estradiol 88.9 pg/mL 04/30/23 Pap Smear Interpret See note 10/03/23 Discharge Plan Discharge Patient Disposition: Home Condition: Stable Prescriptions: New Percocet 10-325 mg tablet 1 tab PO BID PRN (Reason: pain) Qty: 20 0RF Continued amitriptyline 10 mg tablet 10 mg PO .qhs Qty: 30 0RF sertraline 50 mg tablet 50 mg PO DAILY Qty: 30 0RF Discharge Orders: Discharge Order (Routine); Ordered 02/21/24 Ordered By: Damon Ahn Referrals: Damon Ahn MD [Physician] - (Please keep your scheduled appointment with Dr. Ahn.) Discharge Diet: Usual diet Discharge Activity: Increase activity as tolerated Patient Instructions: Acute Wound Care (DC), Laparoscopic Hysterectomy (GEN), OB Abdominal Surgery - [facility], Opioid Safety, Post Anesthesia Care Discharge Attestations BELLY DANCER Time Spent in Discharge Care*: less than 30 min Coding Level of Care Code Acute Code for Chg Fwd Diagnoses S/P hysterectomy Z90.710 Time Spent (min) 20
== END 2024-02-21 12:06 | disposition home or self-care (01) ==
LOC: OBGYN 09:33
PROVIDERS: Admitting Provider Obstetrics & Gynecology; PCP Family Medicine; Visit Provider Obstetrics & Gynecology
PROC: 0UT9FZZ Resection of Uterus, Via Natural or Artificial Opening With Percutaneous Endoscopic Assistance (ICD-10-PCS; CPT 58552; principal; 2024-02-20 07:00)
DX: N92.1 Excessive and frequent menstruation with irregular cycle (principal)
CPT/HCPCS: 58552; 36415; 81025; 85027; 86850; 86900; 88307; G0378; J0131; J0690; J1100; J1885; J2250; J2270; J2405; J2704; J3010; J3490; J7030; J7121

== ENCOUNTER → 2025-07-05 08:48 | Outpatient (BNVA) | payer OTHER, SELFPAY | PROVIDERS: PCP Family Medicine; Visit Provider Family Medicine | DX: K91.2 Postsurgical malabsorption, not elsewhere classified (principal); D64.9 Anemia, unspecified | CPT/HCPCS: 80053; 82306; 82607; 82728; 82746; 83540; 83735; 84425; 84443; 84590; 84630; 85025 ==